=== PATIENT | female | born 1980 | race Hispanic/Latino ===

== ENCOUNTER 2017-03-07 05:42 | Day surgery (SDC) | payer OTHER ==
[2017-03-07] MEDS ORDERED: NACL BACTERIOSTATIC INFILTRATI ONE (06:56)
[2017-03-07] MEDS ORDERED: DIPRIVAN 10 MG/ML IV ONE (07:11)
[2017-03-07] MEDS ORDERED: DECADRON ONE (07:12)
[2017-03-07] MEDS ORDERED: XYLOCAINE MPF 2% ONE (07:12)
[2017-03-07] MEDS ORDERED: ZOFRAN ONE ×2 (07:12→08:44)
[2017-03-07] MEDS ORDERED: SILVER NITRATE TP ONE (07:21)
[2017-03-07] MEDS ORDERED: DILAUDID ONE (07:22)
[2017-03-07] MEDS ORDERED: LACTATED RINGERS 1,000 ML ONE (07:24)
[2017-03-07] MEDS ORDERED: VERSED ONE (07:24)
--- NOTE | 2017-03-07 07:32 | Anesthesia Day of Surgery ---
Anesthesia Day of Surgery - Day of Surgery Patient Examined: Yes Patient H&P Reviewed: Yes Patient is NPO: Yes
--- NOTE | 2017-03-07 07:32 | Anesthesia Consultation ---
Anesthesia Consult and Med Hx Date of service: 03/07/17 - Airway Anesthetic Teeth Evaluation: Good ROM Head & Neck: Adequate Mental/Hyoid Distance: Adequate Mallampati Class: Class II Intubation Access Assessment: Good - Pulmonary Exam CTA: Yes - Cardiac Exam Cardiac Exam: No Murmur - Pre-Operative Health Status ASA Pre-Surgery Classification: ASA2 - Pulmonary Hx Smoking: Yes (VAPING & 1-2 CIAG PER DAY.) Hx Sleep Apnea: No (MARVIN PRE SCREEN NEGATIVE) - Cardiovascular System Hx Hypertension: No - Gastrointestinal Hx Ulcer: Yes - Other Systems Hx Cancer: No
--- NOTE | 2017-03-07 07:36 | Short Stay Summary ---
Short Stay Documentation Date of service: 03/07/17 Narrative H&P: Patient is a 37 year old female who presents with c/o DUB, post coital bleeding and pain. She had an irregular endometrial stirpe on ultrasound. She presents today for D&c. - History Principal diagnosis: DUB H&P: obtained from office Past Medical History: No medical history Past Surgical History: Social history: - Allergies and Medications Current Medications: Allergies NSAIDS (Non-Steroidal Anti-Inflamma Adverse Reaction (Verified 03/02/17 16:10) Vomiting Home Medications Medication Instructions Recorded Confirmed Last Taken Type No Known Home Medications [No 03/02/17 03/02/17 Unknown History Reported Home Medications] Active Medications Famotidine (Pepcid) 20 mg PO PREOP NR Lactated Ringer's (Lactated Ringers) 1,000 mls @ 100 mls/hr IV DIRECT QUE Midazolam HCl (Versed) 2 mg IV PREOP NR Stop: 03/07/17 23:59 - Physical exam General appearance: no acute distress Integumentary: no rash, no growths Lungs: Clear to auscultation, Normal air movement Breasts: deferred Heart: Regular rate, Normal S1, Normal S2 Gastrointestinal: normal, normoactive bowel sounds Female Genitourinary: normal Extremities: no ischemia, No edema - Brief post op/procedure progress note Date of procedure: 03/07/17 Pre-op diagnosis: DUB Post-op diagnosis: same Procedure: D&C with hysteroscopy Anesthesia: MAC Findings: Thickened endometrium Surgeon: LISBETH ACEVES Estimated blood loss: minimal Pathology: list (endometrial curretings) Specimen disposition: to lab Condition: stable - Hospital course Hospital course: unremarkable - Disposition Condition at discharge: Good Disposition: DC-01 TO HOME OR SELFCARE Short Stay Discharge Plan Activity: advance as tolerated Weight Bearing Status: Weight Bear as Tolerated Diet: regular Special Instructions: no heavy lifting Follow up with: LISBETH ACEVES MD [Staff Physician] - 14 Days Prescriptions: HYDROcodone/ACETAMINOPHEN [[place] 5-325 Tablet] 1 each PO Q6HR PRN #20 tablet PRN Reason: Pain
[2017-03-07] MEDS ORDERED: SORBITOL-MANNITOL IRRIG IR ONE (07:50)
[2017-03-07] MEDS ORDERED: LACTATED RINGERS 1,000 ML IV SCH (08:00)
[2017-03-07] MEDS ORDERED: VERSED IV NR (08:00)
[2017-03-07] MEDS ORDERED: PEPCID PO NR (08:00)
[2017-03-07] MEDS ORDERED: NACL 0.9% 1000 ML 1,000 ML ONE (08:07)
--- NOTE | 2017-03-07 08:42 | Post Anesthesia Evaluation ---
- Post Anesthesia Evaluation Patient Participated: Yes Airway Patent: Yes Stable Respiratory Function: Yes Nausea/Vomiting: No Temp > 96.8F: Yes Pain Manageable: Yes Adequeate Hydration: Yes Anesthesia Complications: No Block Receding Appropriately: Not Applicable Patient on Ventilator: No
[2017-03-07] MEDS ORDERED: ZOFRAN IV PRN (09:00)
[2017-03-07] MEDS ORDERED: DILAUDID IV PRN (09:00)
[2017-03-07] MEDS ORDERED: DEMEROL IV PRN (09:00)
[2017-03-07] MEDS ORDERED: REGLAN IV PRN (10:00)
[2017-03-07] MEDS ORDERED: TRANSDERM-SCOP TD PRN (10:00)
[2017-03-07 11:31] VITALS: BP 124/80
--- NOTE | 2017-03-14 10:10 | Operative Report ---
Operative Report Operative Report: Preoperative diagnoses: Menorrhagia Postoperative diagnosis: Same Procedure: D and C, with hysteroscopy Surgeon: Pat Germain M.D. Anesthesia: MAC EBL: Minimal Urine output: 100 mL clear Complications: None Specimens: Endometrial curettings Procedure: Patient was taken to the OR with IV running and in place. She will probably identified as herself. She was given adequate anesthesia. She was then placed in the dorsal lithotomy position and prepped and draped in normal sterile fashion. Attention was turned to the patient's vagina. Her bladder was then drained of approximately 100 mL of clear yellow urine. A bivalve speculum was placed the patient's vagina. Cervix was visualized and grasped with a single-tooth tenaculum. The cervix was then gently dilated up to approximately 29 mm. A hysteroscope was placed into the patient's uterus to visualize it. The tissue appeared to be thickened and irregular. Both ostia were visualized. The hysteroscope was removed at this point. Following this a sharp curettage was performed with a small banjo curet until there was a gritty texture noted in all 4 quadrants of the uterus. There was excellent hemostasis noted at the end of this portion of the procedure. At this point all instruments were removed from the patient's vagina. She was then awakened and taken to recovery in stable condition. She tolerated the procedure well
== END 2017-03-07 11:27 | disposition home or self-care (01) ==
LOC: OR 05:42
PROVIDERS: ATTEND Obstetrics & Gynecology
DX: N92.0 Excessive and frequent menstruation with regular cycle (principal); F17.210 Nicotine dependence, cigarettes, uncomplicated; Z98.890 Other specified postprocedural states
CPT/HCPCS: 58558; 81025; 88305; J1100; J1170; J2175; J2250; J2405; J2704; J2765; J7030; J7120